=== PATIENT | male | born 1975 | race Caucasian/White ===

== ENCOUNTER 2016-12-27 22:15 | Emergency (ER) | payer BC, MEDICAID ==
[~2016-12-27] VITALS: Ht 172.7 cm; Wt 81.6 kg
--- NOTE | 2016-12-27 22:23 | NUR ---
PT WALKED INTO ER WITH STATING HE WAS WORKING ON [employer] ON 12/25/16 AND STATES "DUST GOT IN MY LEFT EYE." PT EYE IS RED AND WITH SHARP PAIN 05/06... PT IS ALERT, ORIENTED X 4, NO RESP DISTRESS NOTED OR REPORTED UPON ASSESSMENT... MD AT BEDSIDE..
[2016-12-27] MEDS ORDERED: FLUORESCEIN SODIUM 1 MG STRIP ONE (22:45)
[2016-12-27] MEDS ORDERED: TETRACAINE HCL 0.5% OPHT DROP 2 ML BOTTLE ONE (22:45)
[2016-12-27] MEDS ORDERED: TETRACAINE HCL 0.5% OPHT DROP 2 ML BOTTLE OP ONE (22:45)
[2016-12-27] MEDS ORDERED: FLUORESCEIN SODIUM 1 MG STRIP OP ONE (22:45)
[2016-12-27] MEDS ORDERED: TDAP DIPH,PERTUSS,TET VAC/PF 0.5 ML DISP.SYRIN IM ONE ×2 (23:00→23:22)
[2016-12-27] MEDS ORDERED: HYDROCODONE/APAP 10-325 MG TABLET PO ONE (23:30)
[2016-12-27] MEDS ORDERED: HYDROCODONE/APAP 10-325 MG TABLET ONE (23:31)
--- NOTE | 2016-12-28 01:04 | NUR ---
Patient discharged to home in stable conditon. Written and verbal after care instructions given. Patient verbalizes understanding of instructions. Pt walked out of ER unassisted with belongings and at side...
[2016-12-28 01:10] VITALS: BP 136/98
== END 2016-12-28 01:13 | disposition home or self-care (01) ==
LOC: ER 22:15
DX: H20.00 Unspecified acute and subacute iridocyclitis (principal); F10.20 Alcohol dependence, uncomplicated
CPT/HCPCS: 70480; 90471; 90715; 99284; A4663

== ENCOUNTER 2019-08-18 22:43 | Emergency (ER) | payer BC ==
[~2019-08-18] VITALS: Ht 172.7 cm; Wt 82.6 kg
[2019-08-18] MEDS ORDERED: CYCLOBENZAPRINE HCL 10 MG TABLET ONE (23:27)
[2019-08-18] MEDS ORDERED: KETOROLAC TROMETHAMINE 60 MG INJ IM ONE (23:28)
[2019-08-18] MEDS ORDERED: MORPHINE SULFATE 4 MG/1 ML DISP.SYRIN ONE (23:30)
[2019-08-18] MEDS ORDERED: CYCLOBENZAPRINE HCL 10 MG TABLET PO ONE (23:30)
[2019-08-18] MEDS: MORPHINE SULFATE 4 MG/1 ML DISP.SYRIN IM ONE (23:39)
[2019-08-18] MEDS: KETOROLAC TROMETHAMINE 60 MG INJ IM ONE (23:40)
--- NOTE | 2019-08-18 23:41 | NUR ---
PT CAME IN AMBULATORY WITH ANTALGIC GAIT ASSISTED BY C/O R KNEE PN AND WEAKNESS DENIES SWELLING, DENIES TRAUMA TOTHE SITE DENIES RECENT SURGERIES TO THE SITE DENIES FEVER, DENIES CHANGES IN LOC, ABLE TO SPEAK CLEAR AND COMPLETE SENTENCES NOT IN APPARENT DISTRESS MD AT BEDSIDE FOR HX AND PHYSICAL
--- NOTE | 2019-08-18 23:55 | NUR ---
SPA SUPERVISOR AT BEDSIDE
[2019-08-19 01:05] VITALS: BP 134/96
--- NOTE | 2019-08-19 01:05 | NUR ---
Patient discharged to home in stable conditon. Written and verbal after care instructions given. Patient verbalizes understanding of instructions. ambulatory w/ stable gait all belongings w/ pt instructed not to drive. pt's will drive
== END 2019-08-19 01:06 | disposition home or self-care (01) ==
LOC: ER 22:44
DX: M25.551 Pain in right hip (principal); R10.30 Lower abdominal pain, unspecified
CPT/HCPCS: 72170; 73502; 96372 ×2; 99283; J1885; J2270; A4663